=== PATIENT | female | born 1950 | race African-American/Black ===

== ENCOUNTER 2017-04-23 06:30 | Inpatient (IN) ==
[2017-04-23] MEDS ORDERED: ONDANSETRON ODT 4 MG TABLET PO STA (07:10)
[2017-04-23] MEDS ORDERED: LOPERAMIDE 2 MG CAPSULE PO STA (07:10)
--- NOTE | 2017-04-23 07:13 | Emergency Department Note ---
Arrival - Arrival Chief Complaint: Nausea/Vomiting/Diarrhea Stated Complaint: stomach ED Nursing Triage Note: PATIENT TO TRIAGE WITH C/O N/D THAT STARTED SATURDAY. SHE STATES SHE HASN'T BEEN ABLE TO EAT SINCE SATURDAY. SHE DENIES THROWING UP BUT DOES STATE SHE HAS BEEN HAVING N/D. Mode of Arrival: Ambulatory Limitations: No Limitations Source: Patient, RN Notes Reviewed Time Seen by Provider: 04/23/17 07:07 - History of Present Illness HPI Narrative: Patient is a 66-year-old white female with a 2 day history of nausea and diarrhea. Patient denies any vomiting. She states that this began after she ate some food from a friend's house which had been obtained on Saturday. Patient denies any chills or fever. She has a history of breast cancer. She is status post hysterectomy. Patient states that she has had diarrhea for 2 days and has been at least 4 times since 12 midnight. She denies any melena, hematochezia, or hematemesis. Onset (ago): day(s) (2) Consistency: constant Severity: mild, moderate Allergies/Adverse Reactions: Allergies Allergy/AdvReac Type Severity Reaction Status Date / Time hydrocodone Allergy Intermediate ITCHING Verified 04/23/17 07:02 Home Medications: Home Medications Medication Instructions Recorded Confirmed Type Ascorbic Acid [Vitamin C] 500 mg PO DAILY 12/16/14 12/16/14 History Cholecalciferol [Vitamin D3] 1,000 unit PO DAILY 12/16/14 12/16/14 History Cyanocobalamin (Vitamin B-12) 1,000 mcg PO DAILY 12/16/14 12/16/14 History [Vitamin B-12] Sun-3 Fatty Acids/Fish Oil [Fish 1 each PO DAILY 12/16/14 12/16/14 History Oil 1,000 mg Softgel] Vitamin B Complex [B Complex] 1 each PO DAILY 12/16/14 12/16/14 History hydroCHLOROthiazide 12.5 mg PO DAILY 12/16/14 12/16/14 History [Hydrochlorothiazide] Review of System - Review of System 12 point system: reviewed and no additional remarkable complaints except as stated Medical,Surgical,& Family Hx - Medical History Neurology: History of: Migraine No history of: Seizures Renal: No history of: Renal (Kidney) Cancer (mass on left kidney) - Surgical History Reproductive Surgeries: Surgical HX of;: Breast Surgery (left breast cancer lumpectomy), Gynecologic Surgery, Hysterectomy Patient denies;: Genitourinary Surgery - Family History Family History: Reports;: Family Cancer, Family Diabetes, Family Heart Disease, Family Hypertension, Family Stroke - Social History Smoking Status: Never smoker Frequency of Alcohol Use: None Type of Drug Use: None Functional capacity: independent ambulation Exam Vital Signs: Vital Signs Temperature 97.5 F L 04/23/17 06:59 Pulse Rate 82 04/23/17 06:59 Respiratory Rate 18 04/23/17 06:59 Blood Pressure 147/83 04/23/17 06:59 O2 Sat by Pulse Oximetry 96 04/23/17 06:59 GENERAL: This is a well-nourished well-developed black female in no apparent distress. VITAL SIGNS: Reviewed HEENT: Head is atraumatic and normocephalic. Pupils are equal round react to light. Extraocular movements are intact. Oropharynx is benign with moist mucous membranes. NECK: Neck is soft and supple without tenderness. There are no masses. There is no lymphadenopathy. LUNGS: Lungs are clear to auscultation. Chest rises symmetrically. There is no chest wall tenderness. CV: Heart is regular rate and rhythm without murmurs rubs or gallops. ABDOMEN: Abdomen is soft, minimal tenderness to palpation in the left upper quadrant without rebound or guarding. There are no abdominal abnormal masses palpated. There is no organomegaly. Bowel sounds are hypoactive. SKIN: Skin is warm and dry. No rash. EXTREMITIES: Patient has full range of motion without tenderness. There is no pedal edema. NEUROLOGIC: Awake alert and oriented 4. Cranial nerves II through XII are grossly intact. Motor is 5 over 5 in all extremities bilaterally. Course Course Narrative: Patient was given Zofran IV along with 1 L normal saline. Patient was also given Zosyn in the emergency department. - Consultations Consultation #1: Discussed with Dr. Hampton. Patient will be admitted to his service. Time: 09:33 Results - Labs CBC & BMP: 04/23/17 07:37 04/23/17 07:37 Lab Results: I have reviewed the patients labs - Diagnostic Findings Procedure: Abdominal x-ray: image reviewed by me (Scattered dilated loops of small bowel with air-fluid levels.), CT Abdomen and Pelvis: image reviewed by me , report reviewed by me (Thickening of the wall of the sigmoid colon with evidence of diverticulitis.) Critical Care Time Critical Care Time: No Disposition Clinical Impression: Nausea, Diarrhea, Vomiting, Diverticulitis Case discussed with: patient Disposition: Still a Patient Condition: Stable Time of Disposition: 09:33
[2017-04-23] MEDS ORDERED: ONDANSETRON 4 MG/2 ML VIAL ONE (07:27)
[2017-04-23] MEDS ORDERED: DIPHENOXYLATE/ATROPINE 2.5-0.025 MG TABLET ONE (07:28)
--- NOTE | 2017-04-23 07:43 | XRay Report ---
XR abdomen complete w decub Indication: Nausea vomiting and diarrhea Comparison: None available Findings: No free fluid or free air seen. Few prominent small bowel loops are present in the left upper abdomen. Air-fluid levels are present in the small bowel and stomach. No abnormal calcifications are present. No other abnormality is identified. Impression: Prominent small bowel loops in the left upper abdomen with air-fluid levels in the small bowel and stomach, could indicate gastroenteritis. PROCEDURE INTERPRETED AT [facility] DEPARTMENT OF RADIOLOG[facility] Final Report Signed by: Dr. Jin Avilez
[2017-04-23] MEDS ORDERED: DIPHENOXYLATE/ATROPINE 2.5-0.025 MG TABLET PO STA (07:45)
[2017-04-23] MEDS ORDERED: ONDANSETRON 4 MG/2 ML VIAL IV STA (07:45)
[2017-04-23 07:58] LABS: Basophils % 0.1 % (0.0-0.8); Hematocrit 39.3 VOL% (35.7-47.0); Hemoglobin 13.3 GM/DL (12.0-16.0); Immature Granulocytes % 0.9 %; Immature Granulocytes Absolute 0.22 #; Lymphocytes # 1.1 10*3/uL (1.4-4.0); Lymphocytes % 4.5 % (21.3-54.2); Mean Corpuscular HGB Conc 33.8 GM/DL (32-36); Mean Corpuscular Hemoglobin 29 PG (27-34); Mean Corpuscular Volume 86.9 FL (87-102); Mean Platelet Volume 9.6 FL (9.6-12.0); Monocytes # 0.7 10*3/uL (0.11-0.8); Neutrophils # 22.4 10*3/uL (1.4-7.4); Neutrophils % 91.5 % (38.7-73.9); Platelet Count 315 T/CUMM (130-400); Red Blood Count 4.52 MC/CUMM (3.8-5.5); Red Cell Distribution Width 15.9 % (9.3-17.3); White Blood Count 24.5 T/CUMM (4-12)
[2017-04-23] MEDS ORDERED: SODIUM CHLORIDE 0.9% 1,000 ML IV STA (07:58)
[2017-04-23 08:04] LABS: Apearance,Urine Slightly Hazy (Clear); Bilirubin,Urine Negative (Negative); Blood, Urine Small mg/dL (Negative); Glucose,Urine (UA) 50 mg/dL (Negative); Ketones,Urine 20 mg/dL (Negative); Mucus,Urine Many /LPF (Occasional); Nitrite,Urine Negative (Negative); Protein,Urine 100 MG/DL; RBC,Urine 34 /HPF (0-4); Urine Specific Gravity 1.028 (1.001-1.035); Urine Urobilinogen < 2.0 EU/DL (0.2-1.0); WBC,Urine 4 /HPF (0-6)
[2017-04-23 08:05] LABS: Urine Color Dark yellow (Yellow)
[2017-04-23 08:28] LABS: Albumin 3.9 G/DL (3.4-5.0); Bilirubin,Total 1.4 MG/DL (0.2-1.0); Calcium 9.7 MG/DL (8.5-10.1); Osmolality,Calculated 271.2 MOS/KG (273-304); Potassium 3.8 MMOL/L (3.5-5.1); Total Protein 8.2 G/DL (6.4-8.3)
[2017-04-23 08:39] LABS: Band Neutrophils 2 % (0-10); Giant Platelets Few; Hypochromasia 1+; Lymphocytes 2 % (20-55); Platelet Estimate Adequate; Segmented Neutrophils 94 % (50-85); Total Cells Counted 100
--- NOTE | 2017-04-23 09:29 | CT Report ---
CT abdomen pelvis Indication: Abdominal pain, nausea and diarrhea Comparison: None available Technique: Axial CT imaging of the abdomen and pelvis is performed with intravenous and oral contrast. Contrast dose is 100 cc of Omnipaque 350. Findings: Cardiac and lung bases are within normal limits CT abdomen: The liver has multiple nonenhancing cyst, the largest is estimated up to 3.7 cm. Spleen has a cystic area that measures up to 4.2 cm in the superior pole. Pancreas and adrenal glands are normal in size and enhancement. No evidence of focal lesion is demonstrated in these solid organs. Kidneys are normal in size. There is a cystic area on the lower pole the right kidney that measures 4.9 cm in size. No evidence of hydronephrosis or nephrolithiasis is seen. There is prominent loops of fluid-filled bowel are diffusely involving both large and small bowel. This is more prominent in the proximal small bowel. Multiple diverticula are present in the colon. No evidence of free fluid or free air is present. Appendix appears normal. CT pelvis: Multiple diverticula are present in the sigmoid colon there is an area of wall thickening with adjacent stranding in the upper pelvis. There is suggestion of trace amount free air present and small amount of free fluid near this area. Bladder shows no evidence of abnormality. The pelvic organs show no evidence of abnormality Impression: Multiple diverticula colon with a short segment of wall thickening and adjacent stranding involving the proximal sigmoid colon. There is trace free air and small amount of free fluid consistent with diverticulitis/perforated diverticula. Distended loops of small bowel with fluid present could indicate ileus. This CT exam was performed using one or more the following dose reduction techniques: Automated exposure control, adjustment of the MA and/or KV according to patient size, or use of iterative reconstruction technique. PROCEDURE INTERPRETED AT [facility] DEPARTMENT OF RADIOLOGY Final Report Signed by: Dr. Jin Avilez
[2017-04-23] MEDS ORDERED: PIPERACILLIN/TAZOBACTAM 3,375 MG in SODIUM CHLORIDE 0.9% 100 ML IV STA (09:33)
[2017-04-23] MEDS ORDERED: PIPERACILLIN/TAZOBACTAM 3,375 MG VIAL IV ONE (09:41)
[2017-04-23] MEDS ORDERED: ONDANSETRON 4 MG/2 ML VIAL IV PRN (10:24)
[2017-04-23] MEDS ORDERED: MORPHINE 2 MG/1 ML SYRINGE IV PRN ×2 (10:24)
[2017-04-23] MEDS ORDERED: ACETAMINOPHEN 325 MG TABLET PO PRN (10:24)
[2017-04-23] MEDS ORDERED: BISACODYL 5 MG TABLET PO PRN (10:24)
[2017-04-23] MEDS ORDERED: KETOROLAC 10 MG TABLET PO PRN (10:24)
--- NOTE | 2017-04-23 10:40 | General Surg History&Physical ---
Assessment and Plan - Time spent with patient Time spent with patient: Greater than 30 minutes (1) Acute diverticulitis Status: Acute Assessment and plan: 66-year-old -Marshallese female with history of hypertension and breast cancer admitted by Dr. Hampton with acute diverticulitis associated with nausea , diarrhea, and leukocytosis. Patient will be started on Levaquin and Flagyl, nausea and pain control. We will start off with a clear liquid diet to see if patient tolerates and if not will make her n.p.o. If patient vomits any further will go ahead and place NG tube to low wall suction. Patient's home medicines have been restarted. Dr. Hampton to see and examined patient and further recommendations to follow. Current Visit: Yes (2) History of breast cancer Status: Acute Current Visit: Yes (3) Hypertension Status: Acute Current Visit: Yes (4) Leukocytosis Status: Acute Current Visit: Yes (5) Nausea Status: Acute Current Visit: Yes (6) Diarrhea Status: Acute Current Visit: Yes (7) Vomiting Status: Acute Current Visit: Yes History of Present Illness Chief complaint: Abdominal pain and nausea History of present illness: Ms. Truong is a 66 year old -Marshallese female with history of hypertension and left breast cancer presenting to the emergency department with a 3 day history of left lower quadrant abdominal pain, nausea, and diarrhea. Patient states it all started on Saturday with pain and nausea with decreased appetite after she ate at a friend's house. Patient thought she had food poisoning at first. Patient states she really has not had anything to eat or drink since then. The pain in the left lower quadrant has worsened along with nausea and she started vomiting today after drinking the contrast. Patient states her mother and all of her brothers have all had diverticulitis. Patient states she has never had these symptoms or problems with her colon before. She denies headache, dysphasia, chest pain, shortness of breath, hematochezia, or lower extremity edema. She is afebrile and vital signs are stable. White count is 24.5, total bilirubin 1.4 with remainder of her LFTs normal, BUN elevated with normal creatinine and urine is dark and hazy but negative for UTI. Abdominal x-ray shows prominent small bowel loops in the left upper abdomen with air-fluid levels in the small bowel and stomach. CT scan of the abdomen and pelvis show multiple diverticula in the colon with wall thickening and adjacent stranding involving the proximal sigmoid colon. There is trace free air and small amount of free fluid consistent with diverticulitis last perforated diverticula with distended loops of small bowel. After discussion with Dr. Jaquez the ED physician and Dr. Hampton the surgeon, it was agreed patient would be admitted for further evaluation and treatment. Home Medications Medication Instructions Recorded Confirmed Type Ascorbic Acid [Vitamin C] 500 mg PO DAILY 12/16/14 04/23/17 History Cholecalciferol [Vitamin D3] 1,000 unit PO DAILY 12/16/14 04/23/17 History Cyanocobalamin (Vitamin B-12) 1,000 mcg PO DAILY 12/16/14 04/23/17 History [Vitamin B-12] Graham-3 Fatty Acids/Fish Oil [Fish 1 each PO DAILY 12/16/14 04/23/17 History Oil 1,000 mg Softgel] Vitamin B Complex [B Complex] 1 each PO DAILY 12/16/14 04/23/17 History hydroCHLOROthiazide 12.5 mg PO DAILY 12/16/14 04/23/17 History [Hydrochlorothiazide] Letrozole [Femara] 2.5 mg PO DAILY 04/23/17 04/23/17 History Allergies Allergy/AdvReac Type Severity Reaction Status Date / Time hydrocodone Allergy Intermediate ITCHING Verified 04/23/17 07:02 Medical,Surgical,& Family Hx - Medical History Neurology: History of: Migraine No history of: Seizures Renal: No history of: Renal (Kidney) Cancer (mass on left kidney) Reproductive: History of: Breast Cancer - Surgical History Reproductive Surgeries: Surgical HX of;: Breast Surgery (left breast cancer lumpectomy), Gynecologic Surgery, Hysterectomy Patient denies;: Genitourinary Surgery - Family History Family History: Reports;: Family Cancer, Family Diabetes, Family Heart Disease, Family Hypertension, Family Stroke - Social History Smoking Status: Never smoker Frequency of Alcohol Use: None Type of Drug Use: None Marital Status: Lives With:: Spouse Functional capacity: independent ambulation Exam - Constitutional Vitals: Period Temp Pulse Resp BP Sys/[place] Pulse Ox Last 24 Hr 97.5 F-97.5 F 82-82 18-18 147-147/83-83 96 Exam: Constitutional System: No distress. No tremulousness. Head: Normocephalic, atraumatic. Ears, Nose and Throat System: No evidence of Otitis or Mastoiditis. No epistaxis or discharge Eyes System: Pupils equal, round, and reactive. Extraocular muscles intact. Neck: Supple, without adenopathy, No jugular venous distention. No thyromegaly, neck mass, or prior surgery apparent. Respiratory System: Chest clear to auscultation. Cardiovascular System: Heart with regular rate and rhythm. No murmur. GI System: Abdomen soft, mildly tender in left lower quadrant. Normo active bowel sounds present. Musculoskeletal System: limbs with no pedal edema. Full distal pulses. Neurological System: No discernable sensory deficit. No aphasia Psychiatric System: Conversation is rational Review of systems: A complete 10 system review of systems was obtained and pertinent positives and negatives per HPI Results - Labs CBC & BMP: 04/23/17 07:37 04/23/17 07:37 Lab Results: I have reviewed the past 24 hour labs - Diagnostic Findings Procedure: KUB x-ray: report reviewed by me (Prominent small bowel loops in the left upper abdomen with air-fluid levels in the small bowel and stomach indicating gastroenteritis), CT Abdomen and Pelvis: report reviewed by me ( Multiple diverticula: With short segment of wall thickening and adjacent stranding involving the proximal sigmoid colon. There is trace free air and small amount of free fluid consistent with perforation. Distended loops of small bowel with fluid present indicating ileus.)
[2017-04-23] MEDS: LACTATED RINGERS 1,000 ML IV SCH ×2 (13:10→21:45)
[2017-04-23] MEDS: metroNIDAZOLE INJ 500 MG in PREMIX 1 EACH IV SCH ×2 (13:55→21:45)
[2017-04-23] MEDS: hydroCHLOROthiazide 12.5 MG CAPSULE PO SCH (13:55)
[2017-04-23] MEDS: MULTIVITAMIN (BEROCCA) TABLET PO SCH (13:55)
[2017-04-23] MEDS: ASCORBIC ACID 500 MG TABLET PO SCH (13:55)
[2017-04-23] MEDS: LETROZOLE 2.5 MG TABLET PO SCH (13:55)
[2017-04-23] MEDS: CHOLECALCIFEROL 1,000 UNIT TABLET PO SCH (13:55)
[2017-04-23] MEDS: OMEGA 3 ACID ETHYL ESTERS 1 GM CAPSULE PO SCH (13:55)
[2017-04-23] MEDS: CYANOCOBALAMIN 500 MCG TABLET PO SCH (13:55)
[2017-04-23] MEDS: LEVOFLOXACIN INJ 750 MG in PREMIX 1 EACH IV SCH (15:00)
[2017-04-24] MEDS: LACTATED RINGERS 1,000 ML IV SCH ×2 (02:44→12:00)
[2017-04-24] MEDS: metroNIDAZOLE INJ 500 MG in PREMIX 1 EACH IV SCH ×3 (05:18→21:29)
[2017-04-24] MEDS: ENOXAPARIN 40 MG/0.4 ML SYRINGE SUBCUT SCH (05:18)
[2017-04-24 06:50] LABS: Basophils % 0.1 % (0.0-0.8); Eosinophils # 0.2 10*3/uL (0.0-0.87); Eosinophils % 1.2 % (0.00-10.9); Hematocrit 31.2 VOL% (35.7-47.0); Immature Granulocytes % 0.5 %; Immature Granulocytes Absolute 0.09 #; Lymphocytes # 1.6 10*3/uL (1.4-4.0); Lymphocytes % 9.4 % (21.3-54.2); Mean Corpuscular Hemoglobin 30 PG (27-34); Mean Corpuscular Volume 86.9 FL (87-102); Mean Platelet Volume 9.9 FL (9.6-12.0); Monocytes # 0.7 10*3/uL (0.11-0.8); Monocytes % 3.9 % (1.7-12.7); Neutrophils # 14.1 10*3/uL (1.4-7.4); Neutrophils % 84.9 % (38.7-73.9); Platelet Count 272 T/CUMM (130-400); Red Cell Distribution Width 15.9 % (9.3-17.3)
[2017-04-24 07:01] LABS: Hemoglobin 10.6 GM/DL (12.0-16.0); Red Blood Count 3.59 MC/CUMM (3.8-5.5); White Blood Count 16.6 T/CUMM (4-12)
[2017-04-24 07:31] LABS: Calcium 8.5 MG/DL (8.5-10.1); Potassium 3.9 MMOL/L (3.5-5.1)
[2017-04-24] MEDS: OMEGA 3 ACID ETHYL ESTERS 1 GM CAPSULE PO SCH (09:07)
[2017-04-24] MEDS: CYANOCOBALAMIN 500 MCG TABLET PO SCH (09:07)
[2017-04-24] MEDS: CHOLECALCIFEROL 1,000 UNIT TABLET PO SCH (09:07)
[2017-04-24] MEDS: LETROZOLE 2.5 MG TABLET PO SCH (09:07)
[2017-04-24] MEDS: MULTIVITAMIN (BEROCCA) TABLET PO SCH (09:07)
[2017-04-24] MEDS: hydroCHLOROthiazide 12.5 MG CAPSULE PO SCH (09:07)
[2017-04-24] MEDS: ASCORBIC ACID 500 MG TABLET PO SCH (09:07)
[2017-04-24] MEDS: PANTOPRAZOLE 40 MG TABLET PO SCH (09:07)
--- NOTE | 2017-04-24 13:25 | General Surgery Progress Note ---
Assessment and Plan - Time spent with patient Time spent with patient: Less than 30 minutes (1) Acute diverticulitis Status: Acute Assessment and plan: 66-year-old -[place] female with history of hypertension and breast cancer admitted by Dr. Hampton with acute diverticulitis associated with nausea , diarrhea, and leukocytosis. Patient will be started on Levaquin and Flagyl, nausea and pain control. We will start off with a clear liquid diet to see if patient tolerates and if not will make her n.p.o. If patient vomits any further will go ahead and place NG tube to low wall suction. Patient's home medicines have been restarted. Dr. Hampton to see and examined patient and further recommendations to follow. 04/24/2017 patient showed much improvement today. She has no abdominal pain at all but she is still having some nausea intermittently. She tolerated a liquid diet and would like to advance to a soft diet. Patient was instructed to take it slow if she has any nausea to stop. We will go ahead and INT her IV and let her walk the halls. Continue antibiotics for now and maybe home tomorrow if she is doing well. Dr. Hampton has seen and examined patient Current Visit: Yes (2) History of breast cancer Status: Acute Current Visit: Yes (3) Hypertension Status: Acute Current Visit: Yes (4) Leukocytosis Status: Acute Current Visit: Yes (5) Nausea Status: Acute Current Visit: Yes (6) Diarrhea Status: Acute Current Visit: Yes (7) Vomiting Status: Acute Current Visit: Yes Subjective Narrative: Patient states she feels much better this morning. She had some minimal nausea when she took her home medicines this morning but no vomiting. She is having no abdominal pain, but is passing gas and having bowel movements. She is tolerating liquids without difficulty. Exam - Constitutional Vitals: Period Temp Pulse Resp BP Sys/[place] Pulse Ox Last 24 Hr 97.4 F-98.7 F 71-83 16-20 117-138/66-81 94-100 Exam: 66-year-old -[place] female, no acute distress, alert and oriented Chest clear CV regular rate and rhythm Abdomen soft and nontender Extremities no edema Results - Labs CBC & BMP: 04/24/17 06:16 04/24/17 06:16 Lab Results: I have reviewed the past 24 hour labs
[2017-04-24] MEDS: LEVOFLOXACIN INJ 750 MG in PREMIX 1 EACH IV SCH (13:39)
[2017-04-25] MEDS: ENOXAPARIN 40 MG/0.4 ML SYRINGE SUBCUT SCH (05:16)
[2017-04-25] MEDS: metroNIDAZOLE INJ 500 MG in PREMIX 1 EACH IV SCH ×3 (05:17→20:46)
[2017-04-25 05:44] LABS: Basophils % 0.2 % (0.0-0.8); Eosinophils # 0.1 10*3/uL (0.0-0.87); Eosinophils % 0.9 % (0.00-10.9); Hematocrit 31.9 VOL% (35.7-47.0); Hemoglobin 10.9 GM/DL (12.0-16.0); Immature Granulocytes % 0.4 %; Immature Granulocytes Absolute 0.06 #; Lymphocytes # 1.3 10*3/uL (1.4-4.0); Lymphocytes % 9.4 % (21.3-54.2); Mean Corpuscular HGB Conc 34.2 GM/DL (32-36); Mean Corpuscular Hemoglobin 30 PG (27-34); Mean Corpuscular Volume 86.4 FL (87-102); Mean Platelet Volume 9.5 FL (9.6-12.0); Monocytes # 0.8 10*3/uL (0.11-0.8); Monocytes % 5.6 % (1.7-12.7); Neutrophils # 11.7 10*3/uL (1.4-7.4); Neutrophils % 83.5 % (38.7-73.9); Platelet Count 287 T/CUMM (130-400); Red Blood Count 3.69 MC/CUMM (3.8-5.5); Red Cell Distribution Width 15.5 % (9.3-17.3)
[2017-04-25] MEDS: PANTOPRAZOLE 40 MG TABLET PO SCH (09:32)
[2017-04-25] MEDS: LETROZOLE 2.5 MG TABLET PO SCH (09:32)
[2017-04-25] MEDS: hydroCHLOROthiazide 12.5 MG CAPSULE PO SCH (09:32)
[2017-04-25] MEDS: MULTIVITAMIN (BEROCCA) TABLET PO SCH (09:33)
[2017-04-25] MEDS: CHOLECALCIFEROL 1,000 UNIT TABLET PO SCH (09:33)
[2017-04-25] MEDS: CYANOCOBALAMIN 500 MCG TABLET PO SCH (09:33)
[2017-04-25] MEDS: OMEGA 3 ACID ETHYL ESTERS 1 GM CAPSULE PO SCH (09:33)
[2017-04-25] MEDS: ASCORBIC ACID 500 MG TABLET PO SCH (09:37)
--- NOTE | 2017-04-25 12:39 | General Surgery Progress Note ---
Assessment and Plan - Time spent with patient Time spent with patient: Less than 30 minutes (1) Acute diverticulitis Status: Acute Assessment and plan: 66-year-old -[place]cu[place] female with history of hypertension and breast cancer admitted by Dr. Hampton with acute diverticulitis associated with nausea , diarrhea, and leukocytosis. Patient will be started on Levaquin and Flagyl, nausea and pain control. We will start off with a clear liquid diet to see if patient tolerates and if not will make her n.p.o. If patient vomits any further will go ahead and place NG tube to low wall suction. Patient's home medicines have been restarted. Dr. Hampton to see and examined patient and further recommendations to follow. 04/24/2017 patient showed much improvement today. She has no abdominal pain at all but she is still having some nausea intermittently. She tolerated a liquid diet and would like to advance to a soft diet. Patient was instructed to take it slow if she has any nausea to stop. We will go ahead and INT her IV and let her walk the halls. Continue antibiotics for now and maybe home tomorrow if she is doing well. Dr. Hampton has seen and examined patient. 04/25/2017 patient looks even better today. She has no abdominal pain and no nausea and she is tolerating a diet. She has had a bowel movement. Her white blood cell count is down to 14 and her H&H is stable. Continue antibiotics for 1 more day and recheck a CBC in the morning. If her white count continues to drop she can go home tomorrow on p.o. antibiotics. Dr. Hampton has seen and examined patient. Current Visit: Yes (2) History of breast cancer Status: Acute Current Visit: Yes (3) Hypertension Status: Acute Current Visit: Yes (4) Leukocytosis Status: Acute Current Visit: Yes (5) Nausea Status: Acute Current Visit: Yes (6) Diarrhea Status: Acute Current Visit: Yes (7) Vomiting Status: Acute Current Visit: Yes Subjective Narrative: Patient feels great this morning. She tolerated her soft mechanical diet. She states her stomach is not sore or painful, and the nausea is resolved. Exam - Constitutional Vitals: Period Temp Pulse Resp BP Sys/[place] Pulse Ox Last 24 Hr 97.2 F-98.1 F 70-84 18-20 125-165/76-85 93-99 Exam: 66-year-old -[place]cu[place] female, no acute distress, alert and oriented Chest clear CV regular rate and rhythm Abdomen soft and nontender Extremities no edema Results - Labs CBC & BMP: 04/25/17 05:16 04/24/17 06:16 Lab Results: I have reviewed the past 24 hour labs
[2017-04-25] MEDS: LEVOFLOXACIN INJ 750 MG in PREMIX 1 EACH IV SCH (15:00)
[2017-04-26] MEDS: metroNIDAZOLE INJ 500 MG in PREMIX 1 EACH IV SCH ×2 (04:44→15:18)
[2017-04-26] MEDS: ENOXAPARIN 40 MG/0.4 ML SYRINGE SUBCUT SCH (04:45)
[2017-04-26 05:17] LABS: Basophils % 0.3 % (0.0-0.8); Eosinophils # 0.1 10*3/uL (0.0-0.87); Eosinophils % 0.7 % (0.00-10.9); Hemoglobin 10.3 GM/DL (12.0-16.0); Immature Granulocytes % 0.5 %; Immature Granulocytes Absolute 0.05 #; Lymphocytes # 1.6 10*3/uL (1.4-4.0); Lymphocytes % 14.1 % (21.3-54.2); Mean Corpuscular HGB Conc 34.3 GM/DL (32-36); Mean Corpuscular Hemoglobin 29 PG (27-34); Mean Corpuscular Volume 85.7 FL (87-102); Mean Platelet Volume 9.5 FL (9.6-12.0); Monocytes # 0.8 10*3/uL (0.11-0.8); Monocytes % 7.4 % (1.7-12.7); Neutrophils # 8.5 10*3/uL (1.4-7.4); Platelet Count 290 T/CUMM (130-400); Red Cell Distribution Width 15.5 % (9.3-17.3)
--- NOTE | 2017-04-26 09:14 | Event Note ---
Tolerating diet. Afebrile vital signs stable. No abdominal pain. Abdomen soft nontender nondistended. White blood cell count normal. She is ready for discharge. Will DC today. Follow-up in 2 weeks. Discharge on antibiotics.
[2017-04-26] MEDS: CYANOCOBALAMIN 500 MCG TABLET PO SCH (09:17)
[2017-04-26] MEDS: PANTOPRAZOLE 40 MG TABLET PO SCH (09:17)
[2017-04-26] MEDS: MULTIVITAMIN (BEROCCA) TABLET PO SCH (09:17)
[2017-04-26] MEDS: LETROZOLE 2.5 MG TABLET PO SCH (09:17)
[2017-04-26] MEDS: hydroCHLOROthiazide 12.5 MG CAPSULE PO SCH (09:17)
[2017-04-26] MEDS: ASCORBIC ACID 500 MG TABLET PO SCH (09:17)
[2017-04-26] MEDS: OMEGA 3 ACID ETHYL ESTERS 1 GM CAPSULE PO SCH (09:18)
--- NOTE | 2017-04-26 10:37 | Discharge Summary ---
Hospital Course - Hospital Course Hospital Course: 66-year-old -[place] female with history of hypertension and breast cancer admitted by Dr. Hampton on 04/23/2017 with acute diverticulitis associated with nausea, diarrhea, and leukocytosis. Patient was started on IV Levaquin and Flagyl with pain and nausea control. She is feeling great today. She has no pain, no nausea, and she is tolerating a diet. She will be discharged home on Levaquin and Flagyl p.o. medication and a few p.o. narcotics. She will follow-up with Dr. Hampton in his office in 2 weeks. Complete discharge instructions were given. Care coordination, chart review, and completed discharge paperwork took approximately 32 minutes. - Time spent with patient Time with patient DS: Greater than 30 minutes Diagnosis - Discharge Diagnosis (1) Acute diverticulitis Status: Acute (2) History of breast cancer Status: Acute (3) Hypertension Status: Acute (4) Leukocytosis Status: Acute (5) Nausea Status: Acute (6) Diarrhea Status: Acute (7) Vomiting Status: Acute Specialty Discharge - Follow Up or Referrals Discharge Plan - Discharge Data Disposition: Disch To Home/Self Care Condition at Discharge: Stable Discharge Diet: heart healthy Activity: resume usual activities as tolerated Hygiene: may shower Driving: other (No driving if taking pain medications) - Discharge Medications New Levofloxacin Tab [Levaquin Tab] 500 mg PO DAILY #14 tablet metroNIDAZOLE TAB [Flagyl Cap/Tab] 500 mg PO TID #42 tablet HYDROcodone/ACETAMIN 7.5-325 [[place] 7.5-325] 1 tablet PO Q4H PRN #20 tablet PRN Reason: Pain Moderate (4-7) Continue hydroCHLOROthiazide [Hydrochlorothiazide] 12.5 mg PO DAILY [place]-3 Fatty Acids/Fish Oil [Fish Oil 1,000 mg Softgel] 1 each PO DAILY Cyanocobalamin (Vitamin B-12) [Vitamin B-12] 1,000 mcg PO DAILY Ascorbic Acid [Vitamin C] 500 mg PO DAILY Cholecalciferol [Vitamin D3] 1,000 unit PO DAILY Vitamin B Complex [B Complex] 1 each PO DAILY Letrozole [Femara] 2.5 mg PO DAILY - Follow Up or Referral Follow Up: Jayson Hampton MD [Physician] - 2 Weeks - Forms/Instructions Instructions: Diverticulitis Diet (GEN) Exam - Constitutional Vitals: Period Temp Pulse Resp BP Sys/[place] Pulse Ox Last 24 Hr 97.1 F-98.7 F 70-79 18-20 129-154/71-88 93-97 Discharge Results Labs on day of discharge: Labs from last 24 hours 04/26/17 04/26/17 04/25/17 06:35 04:57 20:05 WBC 11.0 RBC 3.50 L Hgb 10.3 L Hct 30.0 L MCV 85.7 L MCH 29 MCHC 34.3 RDW 15.5 Plt Count 290 MPV 9.5 L Neut % (Auto) 77.0 H Lymph % (Auto) 14.1 L [place] % (Auto) 7.4 Eos % (Auto) 0.7 Baso % (Auto) 0.3 Neut # (Auto) 8.5 H Lymph # (Auto) 1.6 [place] # (Auto) 0.8 Eos # (Auto) 0.1 Baso # (Auto) 0.0 Immature Gran % 0.5 Nucleated RBC % 0.0 Immature Gran # 0.05 Nucleated RBCs # 0.00 Immature Plt Fraction 0.0 POC Glucose 85 124 H 04/25/17 04/25/17 15:46 10:35 WBC RBC Hgb Hct MCV MCH MCHC RDW Plt Count MPV Neut % (Auto) Lymph % (Auto) [place] % (Auto) Eos % (Auto) Baso % (Auto) Neut # (Auto) Lymph # (Auto) [place] # (Auto) Eos # (Auto) Baso # (Auto) Immature Gran % Nucleated RBC % Immature Gran # Nucleated RBCs # Immature Plt Fraction POC Glucose 119 H 103 DS: Provider Date of admission: 04/23/17 10:24 Primary care physician: . No PCP Attending physician on admission: Jayson Hampton MD Consults: 04/23/17 15:13 Consult to Pastoral Services [CONS] Routine Comment: Pastoral Screen: Request Garment Alteration Examiner Visit Pastoral Screen Source of Request: Patient Discharging clinician: ZAKIYA Cobb Expected date of discharge: 04/26/17
[2017-04-26 11:18] VITALS: BP 128/64
[2017-04-26] MEDS: CHOLECALCIFEROL 1,000 UNIT TABLET PO SCH (15:18)
[2017-04-26] MEDS: LEVOFLOXACIN INJ 750 MG in PREMIX 1 EACH IV SCH (15:18)
== END 2017-04-26 12:30 | disposition home or self-care (01) | DRG 392 ==
LOC: N.ED 06:30 → N.EDINP 10:24 → N.3E 12:49
PROVIDERS: ADMIT Surgery; ATTEND Surgery